=== PATIENT | male | born 1945 | race Two or more races ===

== ENCOUNTER 2025-11-03 18:12 | Inpatient (IN) | payer OTHER ==
[~2025-11-03] VITALS: Ht 165.1 cm; Wt 60.6 kg
--- NOTE | 2025-11-03 22:04 | ED.PDOC ---
History of Present Illness HPI Comments 80-year-old male who came to ER for medical clearance/altered level of consciousness. Patient coming in asking for a ride home. He does not know his address, does not even know who brought him to the hospital. He is A&O x2 at this time. Chief Complaint: Medical Clearance Time Seen by MD: 22:03 Reviewed Notes: Nurses Notes Allergies: Coded Allergies: NO KNOWN ALLERGIES (Unverified , 11/03/25) Information Source: Patient Mode of Arrival: EMS Past Medical History PAST MEDICAL HISTORY: Pt Confused Surgical History: Pt Confused Family History Family History: Pt Confused Social History Smoker: Pt Confused Alcohol: Pt Confused Drugs: Pt Confused Lives In: Pt Confused Unable to Obtain due to: Altered Mental Status Physical Exam General Appearance: No Apparent Distress, Normal HEENT: Normal ENT Inspection, Pharynx Normal, TMs Normal Neck: Full Range of Motion, Non-Tender, Normal, Normal Inspection Respiratory: Chest Non-Tender, Lungs Clear, No Accessory Muscle Use, No Respiratory Distress, Normal Breath Sounds Cardiovascular: No Edema, No JVD, No Murmur, No Gallop, Normal Peripheral Pulses, Regular Rate/Rhythm Breast Exam: Deferred Gastrointestinal: No Organomegaly, Non Tender, No Pulsatile Mass, Normal Bowel Sounds, Soft Genitalia: Deferred Pelvic: Deferred Rectal: Deferred Extremities: No calf tenderness, Normal capillary refill, Normal inspection, N ormal range of motion, Non-tender, No pedal edema Musculoskeletal : Apperance: Normal Neurologic: Alert, digitizer II-XII nml as Tested, No Motor Deficits, Normal Affect, Normal Mood, No Sensory Deficits Cerebellar Function: Normal Reflexes: Normal Skin: Dry, Normal Color, Warm Lymphatic: No Adenopathy Was a procedure done? Was a procedure done?: No Differential Dx Considerations may include: Dementia, encephalopathy, confusion, UTI X-Ray, Labs, Meds, VS Vital Signs Date Time Temp Pulse Resp B/P (MAP) Pulse Ox O2 Delivery O2 Flow Rate FiO2 11/03/25 19:35 97.5 97 19 161/78 (105) 94 97.5 11/03/25 18:24 98.3 90 20 184/96 99 98.3 Lab Test 11/03/25 23:46 11/03/25 22:42 Range/Units Troponin I High Sensitivity 28 31 </=54 ng/L White Blood Count 9.4 4.4-10.8 10^3/uL Red Blood Count 4.05 L 4.5-5.90 10^6/uL Hemoglobin 12.9 L 13.5-17.5 g/dL Hematocrit 38.3 L 41.0-53.0 % Mean Corpuscular Volume 94.5 80.0-100.0 fL Mean Corpuscular Hemoglobin 31.9 28.0-32.0 pg Mean Corpuscular Hemoglobin Concent 33.7 32.0-36.0 g/dL Red Cell Distribution Width 14.4 H 11.8-14.3 % Platelet Count 239 140-450 10^3/uL Mean Platelet Volume 7.6 6.9-10.8 fL Neutrophils (%) (Auto) 73.0 37.0-80.0 % Lymphocytes (%) (Auto) 7.9 L 10.0-50.0 % Monocytes (%) (Auto) 18.3 H 0.0-12.0 % Eosinophils (%) (Auto) 0.6 0.0-7.0 % Basophils (%) (Auto) 0.2 0.0-2.0 % Neutrophils # (Auto) 6.9 1.6-8.6 10 ^3/uL Lymphocytes # (Auto) 0.7 0.4-5.4 10 ^3/uL Monocytes # (Auto) 1.7 H 0-1.3 10 ^3/uL Eosinophils # (Auto) 0.1 0-0.8 10 ^3/uL Basophils # (Auto) 0 0-0.2 10 ^3/uL Nucleated Red Blood Cells 0.0 % Prothrombin Time 10.0 9.3-11.8 sec Prothrombin Time INR 0.94 0.9-1.15 Activated Partial Thromboplast Time 28.8 24.5-34.5 SEC Sodium Level 141 136-145 mmol/L Potassium Level 3.8 3.5-5.1 mmol/L Chloride Level 109 H 98-107 mmol/L Carbon Dioxide Level 20 20-31 mmol/L Anion Gap 12 5-15 Blood Urea Nitrogen 39 H 9-23 mg/dL Creatinine 2.85 H 0.700-1.30 mg/dL Glomerular Filtration Rate Calc 22 >90 mL/min BUN/Creatinine Ratio 13.7 10.0-20.0 Serum Glucose 99 74-106 mg/dL Lactic Acid Level 0.8 0.4-2.0 mmol/L Calcium Level 9.1 8.7-10.4 mg/dL Magnesium Level 2.2 1.6-2.6 mg/dL Total Bilirubin 0.5 0.2-1.0 mg/dL Aspartate Amino Transferase (AST) 15 13-40 U/L Alanine Aminotransferase (ALT) < 9 7-40 U/L Alkaline Phosphatase 94 46-116 U/L Total Protein 7.4 5.7-8.2 g/dL Albumin 4.5 3.2-4.8 g/dL Plasma/Serum Blood Alcohol < 3.0 <10 mg/dL Time of 1ST Reevaluation: 21:58 Reevaluation 1ST: Unchanged Patient Education/Counseling: Diagnosis, Treatment Family Education/Counseling: No Family Present SEPSIS Sepsis Screen Date sepsis recognized/suspect: Nov 03, 2025 Time Sepsis recognized/suspect: 1803 Recent Procedure: No On Antibiotic Therapy: No Respiratory Rate >20: No Heart Rate >90: Yes Temp<36 C (96.8 F) or >38.3 C: No SBP <90 or MAP <65 mmHG: No New Acute Mental Status Change: No Is the patient on CPAP, BIPAP,: No Physician Orders * High Density Talc Coater Operator Consult (11/03/25 ) Urinalysis (11/03/25 21:57) Chest Portable (11/03/25 21:57) Head Without Contrast (11/03/25 21:57) Drug Screen (11/03/25 21:57) Account Services Representative (11/03/25 21:57) Blood Culture (11/03/25 21:57) Electrocardigram (11/03/25 21:57) Vital Signs Date Time Temp Pulse Resp B/P (MAP) Pulse Ox O2 Delivery O2 Flow Rate FiO2 11/03/25 19:35 97.5 97 19 161/78 (105) 94 97.5 11/03/25 18:24 98.3 90 20 184/96 99 98.3 Laboratory Tests Test 11/03/25 22:42 Lactic Acid Level 0.8 mmol/L (0.4-2.0) White Blood Count 9.4 10^3/uL (4.4-10.8) Departure 1 Departure Time of Disposition: 00:30 Impression: Primary Impression: Metabolic encephalopathy Additional Impressions: Acute renal injury Dehydration Disposition: 09 ADMITTED INPATIENT Admit to: Med Surg Condition: Guarded Discharged With: Self Comments 80-year-old male with altered mental status and confusion. Patient is alert to self only. His lab results show acute renal injury with BUN creatinine high at 39 and 2.85. Patient was given IV fluids and antibiotics. Patient will need to be admitted for supportive care and for the workup. Critical Care Note Critical Care Time?: Yes (35 min-critical care time only) Critical care comment: Total critical care time: Approximately 36 minutes Due to a high probability of clinically significant, life threatening deterioration, the patient required my highest level of preparedness to intervene emergently and I personally spent this critical care time directly and personally managing the patient. This critical care time included obtaining a history; examining the patient; pulse oximetry; ordering and review of studies; arranging urgent treatment with development of a management plan; evaluation of patient's response to treatment; frequent reassessment; and, discussions with other providers. This critical care time was performed to assess and manage the high probability of imminent, life-threatening deterioration that could result in multi-organ failure. It was exclusive of separately billable procedures and treating other patients. Stability Stability form required: No Heart Score Heart Score: Heart Score Response (Comments) Value History Moderate Suspicious 1 EKG Repolarization Disturb 1 Age >65 2 Risk Factors 1 or 2 risk factors 1 Troponin Normal limit 0 Total 5 I personally scribed for GEORGIE KAY MD ([email or web address]) on 11/03/25 at 22:04. Electronically submitted by Bolivar Ya ([email or web address]). GEORGIE KAY MD Nov 03, 2025 22:04
[2025-11-03 23:06] LABS: Hematocrit 38.3 % (41.0-53.0); Hemoglobin 12.9 g/dL (13.5-17.5); Mean Corpuscular Hemoglobin 31.9 pg (28.0-32.0); Mean Corpuscular Volume 94.5 fL (80.0-100.0); Nucleated Red Blood Cells % 0.0 %
[2025-11-03 23:22] LABS: INR 0.94 (0.9-1.15); Partial Thromboplastin Time 28.8 SEC (24.5-34.5); Prothrombin Time 10.0 sec (9.3-11.8)
[2025-11-03 23:23] LABS: Albumin 4.5 g/dL (3.2-4.8); Alkaline Phosphatase 94 U/L (46-116); Anion Gap 12 (5-15); BUN/Creatinine Ratio 13.7 (10.0-20.0); Bilirubin, Total 0.5 mg/dL (0.2-1.0); Calcium 9.1 mg/dL (8.7-10.4); Carbon Dioxide 20 mmol/L (20-31); Glucose 99 mg/dL (74-106); Magnesium 2.2 mg/dL (1.6-2.6); Potassium 3.8 mmol/L (3.5-5.1); Sodium 141 mmol/L (136-145); Total Protein 7.4 g/dL (5.7-8.2)
[2025-11-03 23:24] LABS: Alanine Aminotransferase < 9 U/L (7-40); Blood Urea Nitrogen 39 mg/dL (9-23); Chloride 109 mmol/L (98-107)
--- NOTE | 2025-11-03 23:30 | DVH ---
EXAM: CT HEAD WITHOUT CONTRAST INDICATION: ALOC TECHNIQUE: CT of the head without intravenous contrast. Radiation Dose : 1. Head: CT Dose: CTDI volume is 53.99 mGy. Dose-length product is 971.8 mGy*cm The dose indicators for CT are the volume Computed Tomography (CT) Dose Index (CTDIvol) and the Dose Length Product (DLP), and are measured in units of mGy and mGy-cm, respectively. These indicators are not patient dose, but values generated from the CT scanner acquisition factors. The report includes radiation exposure data for exposures received during this examination. COMPARISON: None FINDINGS: Evaluation is degraded by motion artifact. No acute territorial infarct, intracranial hemorrhage, or mass effect. There are global involutional changes with compensatory prominence of the ventricles and sulci. Patchy periventricular and subcortical white matter hypoattenuation is nonspecific but may be related to small vessel ischemic disease. Chronic deep cerebral lacunar infarcts. Bilateral lens implants. The paranasal sinuses and mastoid air cells are clear. The osseous structures are unremarkable. IMPRESSION: 1. No acute territorial infarct, intracranial hemorrhage, or mass effect. 2. Age-related involutional changes. Chronic ischemic changes as detailed. 3. If clinical symptoms persist, MRI may be beneficial in further evaluation. Radiation optimization: All CT scans at this facility use at least one of these dose optimization techniques: automated exposure control mA and/or kV adjustment per patient size (includes targeted exams where dose is matched to clinical indication) or iterative reconstruction.
--- NOTE | 2025-11-04 00:48 | DVH ---
INDICATION: SOB TECHNIQUE: Frontal view of the chest. COMPARISON: None FINDINGS/IMPRESSION: The lungs are clear. The cardiomediastinal silhouette is unremarkable. No pleural effusion or pneumothorax. No acute osseous abnormality.
[2025-11-04] MEDS: SODIUM CHLORIDE 0.9% 1,000 ML IVB ONE (02:02)
--- NOTE | 2025-11-04 04:19 | PRN ---
Misceleneous Note Note Note Patient seen and evaluated ER bed 3. Patient is alert and oriented x3. States he lives in [facility], denies being homeless. refused to provide address, family contacts. Requesting he wants to rest. ER orders pending at this time. district claims manager instructed to contact CPN hospitalist once al orders completed. MEMO DUTTA NP Nov 04, 2025 04:19
[2025-11-04] MEDS ORDERED: DOCUSATE SOD 100 MG CAP PO PRN (05:15)
[2025-11-04] MEDS ORDERED: MORPHINE SULFATE INJ 2 MG/ml SYRG IV PRN (05:15)
[2025-11-04] MEDS ORDERED: ONDANSETRON HCL 4 MG/2 ML VIAL IV PRN (05:15)
[2025-11-04] MEDS ORDERED: NITROGLYCERIN 0.4 MG SL TAB SL PRN (05:15)
[2025-11-04] MEDS ORDERED: ACETAMINOPHEN 325 MG TAB PO PRN (05:15)
[2025-11-04] MEDS: SOD CHL 0.45% 1,000 ML IV SCH (05:40)
--- NOTE | 2025-11-04 05:45 | DVHHP2 ---
MEMO DUTTA LEGAL COUNSEL 11/04/25 0545: History of Present Illness Reason for Visit: confusion History of Present Illness 80-year-old male with past medical history of CKD 4, CVA, cardiac dysrhythmia, presents to the hospital confused. Patient went into the hospital requesting a ride home. However when he was asked where he lives he could not remember his address. During my evaluation the patient stated he would went into the emergency department for having difficulty urinating. Patient is alert to self and place. States he lives in [place], however is unable to provide a direct address. Denies being homeless. During the emergency department evaluation Na 141, K3.8, BUN 39, creatinine 2.85, GFR 22, mg 2.2 LA 0.8, troponin-. W9.4, H&H 12.9/30.3, PLT 239. CT of the head had no acute findings. CXR no acute cardiopulmonary disease. At this time the patient is admitted for further evaluation and treatment. 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: CVA Renal/: Chronic renal insuff Smoke: No ALCOHOL: none Drugs: None Lives: Homeless Review of Systems Constitutional: No: Fever, Chills, Sweats, Weakness, Malaise, Other Eyes: No: Pain, Vision change, Conjunctivae inflammation, Eyelid inflammation, Other, Redness ENT: No: Ear pain, Ear discharge, Nose pain, Nose discharge, Nose congestion, Mouth pain, Mouth swelling, Throat pain, Throat swelling, Other Respiratory: No: Cough, Dry, Shortness of breath, SOB with excertion, Wheezing, Hemoptysis, Pleuritic Pain, Sputum, Wheezing, Other Cardiovascular: No: Chest Pain, Palpitations, Orthopnea, Paroxysmal Noc. Dyspnea, Edema, Lt Headedness, Other Gastrointestinal: No: Nausea, Vomiting, Abdominal Pain, Diarrhea, Constipation, Melena, Hematochezia, Other Genitourinary: No Dysuria, No Frequency, No Incontinence, No Hematuria; Retention; No Other Musculoskeletal: No: other, neck pain, shoulder pain, arm pain, back pain, hand pain, leg pain, foot pain Skin: No: Rash, Lesions, Jaundice, Bruising, Other Neurological: No: Weakness, Numbness, Incoordination, Change in speech, Confusion, Seizures, Other Allergies: Coded Allergies: NO KNOWN ALLERGIES (Unverified , 11/03/25) Medications Current Medications Medications Dose Ordered Sig/Serenity Route Start Time Stop Time Status Last Admin Dose Admin Docusate Sodium 100 mg BIDPRN PRN PO 11/04/25 05:15 Acetaminophen 650 mg Q6HP PRN PO 11/04/25 05:15 Sodium Chloride 1,000 ml @ 75 mls/hr [id number] IV 11/04/25 05:15 Ondansetron HCl 4 mg Q4HP PRN IV 11/04/25 05:15 Nitroglycerin 0.4 mg Q5MINP PRN SL 11/04/25 05:15 Morphine Sulfate 2 mg Q30M PRN IV 11/04/25 05:15 Exam Vital Signs Vital Signs Date Time Temp Pulse Resp B/P (MAP) Pulse Ox O2 Delivery O2 Flow Rate FiO2 11/04/25 04:59 89 22 138/71 (93) 11/03/25 19:35 97.5 94 97.5 General Appearance: Alert, No acute distress, Other (Poor hygiene, malodorous, unkempt, malnourished) HEENT: Atraumatic, EOMI Respiratory: Clear to auscultation, Normal air movement Cardiovascular: Regular rate, Normal S1, Normal S2 Abdominal: Normal bowel sounds, Soft, No tenderness Extremities: No clubbing, No edema Skin: No rashes Neuro: Normal speech, Strength at 5/5 X4 ext Psych/Mental Status: Other (Agitated) Labs/Xrays Labs Test 11/03/25 23:46 11/03/25 22:42 Range/Units Troponin I High Sensitivity 28 </=54 ng/L White Blood Count 9.4 4.4-10.8 10^3/uL Red Blood Count 4.05 L 4.5-5.90 10^6/uL Hemoglobin 12.9 L 13.5-17.5 g/dL Hematocrit 38.3 L 41.0-53.0 % Mean Corpuscular Volume 94.5 80.0-100.0 fL Mean Corpuscular Hemoglobin 31.9 28.0-32.0 pg Mean Corpuscular Hemoglobin Concent 33.7 32.0-36.0 g/dL Red Cell Distribution Width 14.4 H 11.8-14.3 % Platelet Count 239 140-450 10^3/uL Mean Platelet Volume 7.6 6.9-10.8 fL Neutrophils (%) (Auto) 73.0 37.0-80.0 % Lymphocytes (%) (Auto) 7.9 L 10.0-50.0 % Monocytes (%) (Auto) 18.3 H 0.0-12.0 % Eosinophils (%) (Auto) 0.6 0.0-7.0 % Basophils (%) (Auto) 0.2 0.0-2.0 % Neutrophils # (Auto) 6.9 1.6-8.6 10 ^3/uL Lymphocytes # (Auto) 0.7 0.4-5.4 10 ^3/uL Monocytes # (Auto) 1.7 H 0-1.3 10 ^3/uL Eosinophils # (Auto) 0.1 0-0.8 10 ^3/uL Basophils # (Auto) 0 0-0.2 10 ^3/uL Nucleated Red Blood Cells 0.0 % Prothrombin Time 10.0 9.3-11.8 sec Prothrombin Time INR 0.94 0.9-1.15 Activated Partial Thromboplast Time 28.8 24.5-34.5 SEC Sodium Level 141 136-145 mmol/L Potassium Level 3.8 3.5-5.1 mmol/L Chloride Level 109 H 98-107 mmol/L Carbon Dioxide Level 20 20-31 mmol/L Anion Gap 12 5-15 Blood Urea Nitrogen 39 H 9-23 mg/dL Creatinine 2.85 H 0.700-1.30 mg/dL Glomerular Filtration Rate Calc 22 >90 mL/min BUN/Creatinine Ratio 13.7 10.0-20.0 Serum Glucose 99 74-106 mg/dL Lactic Acid Level 0.8 0.4-2.0 mmol/L Calcium Level 9.1 8.7-10.4 mg/dL Magnesium Level 2.2 1.6-2.6 mg/dL Total Bilirubin 0.5 0.2-1.0 mg/dL Aspartate Amino Transferase (AST) 15 13-40 U/L Alanine Aminotransferase (ALT) < 9 7-40 U/L Alkaline Phosphatase 94 46-116 U/L Total Protein 7.4 5.7-8.2 g/dL Albumin 4.5 3.2-4.8 g/dL Plasma/Serum Blood Alcohol < 3.0 <10 mg/dL SEPSIS Sepsis Screen Date sepsis recognized/suspect: Nov 04, 2025 Time Sepsis recognized/suspect: 522 Recent Procedure: No On Antibiotic Therapy: No Respiratory Rate >20: No Heart Rate >90: No Temp<36 C (96.8 F) or >38.3 C: No SBP <90 or MAP <65 mmHG: No New Acute Mental Status Change: No Is the patient on CPAP, BIPAP,: No Physician Orders Urinalysis (11/03/25 21:57) Chest Portable (11/03/25 21:57) Head Without Contrast (11/03/25 21:57) Drug Screen (11/03/25 21:57) Director Perioperative (11/03/25 21:57) Blood Culture (11/03/25 21:57) Electrocardigram (11/03/25 21:57) * Building Contractor Consult (11/04/25 ) Admit (11/04/25 05:15) Code Status (11/04/25 05:15) Vital Signs .PER UNIT PROTOCOL (11/04/25 05:15) Review Orders With Adm. (11/04/25 05:15) Encourage Activity As Tolerate (11/04/25 05:15) Consistent Carb(Ccho)Diabetes (11/04/25 Breakfast) Oxygen By Face Mask (11/04/25 05:15) Docusate Sodium Capsule (Colace Capsule) (11/04/25 05:15) Acetaminophen Tablet (Tylenol Tablet) (11/04/25 05:15) Notify Md Of Changes From Base (11/04/25 05:15) Advance Directive (11/04/25 05:15) Basic Metabolic Panel (11/05/25 05:00) Basic Metabolic Panel (11/06/25 05:00) Basic Metabolic Panel (11/07/25 05:00) Basic Metabolic Panel (11/08/25 05:00) Basic Metabolic Panel (11/09/25 05:00) Complete Blood Count (11/05/25 05:00) Complete Blood Count (11/06/25 05:00) Complete Blood Count (11/07/25 05:00) Complete Blood Count (11/08/25 05:00) Complete Blood Count (11/09/25 05:00) Sod Chl 0.45% (Sodium Chloride 0.45% Via (11/04/25 05:15) Patient Condition (11/04/25 05:15) Allergies (11/04/25 05:15) Ondansetron Hcl (Zofran) (11/04/25 05:15) Sequential Compression Device (11/04/25 ) Nitroglycerin Sublingual (Ntrostat Subli (11/04/25 05:15) Morphine Sulfate Injection (11/04/25 05:15) Stat Ekg For Chest Pain (11/04/25 05:15) Notify Md Of Changes From Base (11/04/25 05:15) Store Sales Manager For 24 Hours (11/04/25 05:15) Emergency Dysrhythmia Protocol (11/04/25 05:15) Rhythm Strips Once Every Shift (11/04/25 05:15) Oxygen By Nasal Cannula (11/04/25 05:15) Pt Request For Service (11/04/25 05:15) *[facility] (11/04/25 05:15) Kidney (11/04/25 05:15) Insert Givens Catheter QSHIFT (11/04/25 05:22) Insert/Manage Urinary Catheter QSHIFT (11/04/25 05:22) Vitamin B12 (11/04/25 05:24) Ammonia (11/04/25 05:24) Thyroid Stimulating Hormone (11/04/25 05:24) Vital Signs Date Time Temp Pulse Resp B/P (MAP) Pulse Ox O2 Delivery O2 Flow Rate FiO2 11/04/25 04:59 89 22 138/71 (93) Laboratory Tests Test 11/03/25 22:42 Lactic Acid Level 0.8 mmol/L (0.4-2.0) White Blood Count 9.4 10^3/uL (4.4-10.8) Medications Medications Dose Ordered Sig/Serenity Route Start Time Stop Time Status Last Admin Dose Admin Ceftriaxone Sodium 50 ml @ 100 mls/hr ONCE ONCE IV 11/04/25 00:45 11/04/25 01:14 DC 11/04/25 02:03 100 MLS/HR Sodium Chloride 1,000 ml @ 1,000 mls/hr Q1H ONCE IVB 11/03/25 22:00 11/03/25 22:59 DC 11/04/25 02:02 1,000 MLS/HR Assessment/Plan Assessment/Plan Acute confusion versus underlying dementia Acute kidney injury on chronic kidney disease Homelessness? Plan Admit medical Nephrology consult. Monitor BMP. Trend. BUN/creatinine. Renal US. Psych evaluation MRI brain. Check B12, TSH, ammonia level. UA, UDS, blood cultures, pending. Social service consult Physical therapy evaluation DVT PPX Heparin SQ Plan discussed with: Patient My Orders Orders - MEMO DUTTA NP Procedure Category Date Status Time * Building Contractor CONS 11/04/25 Transmitted Consult Admit ADMIT 11/04/25 Transmitted 05:15 Code Status CODE 11/04/25 Transmitted 05:15 Vital Signs [facility] 11/04/25 In Process 05:15 Review Orders With [facility] 11/04/25 In Process Adm. 05:15 Encourage Activity As ANDRES 11/04/25 In Process Tolerate 05:15 Consistent DIET 11/04/25 Transmitted Carb(Ccho)Diabetes Breakfast Oxygen By Face Mask RT 11/04/25 Transmitted 05:15 Docusate Sodium PHA 11/04/25 In Process Capsule (Colace 05:15 Acetaminophen Tablet PHA 11/04/25 In Process (Tylenol Tablet) 05:15 Notify Of Changes [facility] 11/04/25 In Process From Base 05:15 Advance Directive [facility] 11/04/25 In Process 05:15 Basic Metabolic Panel LAB 11/05/25 Verified 05:00 Basic Metabolic Panel LAB 11/06/25 Verified 05:00 Basic Metabolic Panel LAB 11/07/25 Verified 05:00 Basic Metabolic Panel LAB 11/08/25 Verified 05:00 Basic Metabolic Panel LAB 11/09/25 Verified 05:00 Complete Blood Count LAB 11/05/25 Verified 05:00 Complete Blood Count LAB 11/06/25 Verified 05:00 Complete Blood Count LAB 11/07/25 Verified 05:00 Complete Blood Count LAB 11/08/25 Verified 05:00 Complete Blood Count LAB 11/09/25 Verified 05:00 Sod Chl 0.45% (Sodium PHA 11/04/25 In Process Chloride 0.45% Via 05:15 Patient Condition ORDERS 11/04/25 Transmitted 05:15 Allergies [facility] 11/04/25 In Process 05:15 Ondansetron Hcl PHA 11/04/25 In Process (Zofran) 05:15 Sequential ANDRES 11/04/25 In Process Compression Device Nitroglycerin [facility] 11/04/25 In Process Sublingual (Ntrostat 05:15 Morphine Sulfate PHA 11/04/25 In Process Injection 05:15 Stat Ekg For Chest [facility]RES 11/04/25 In Process Pain 05:15 Notify Md Of Changes ANDRES 11/04/25 In Process From Base 05:15 Store Sales Manager For [facility] 11/04/25 In Process 24 Hours 05:15 Emergency Dysrhythmia [facility] 11/04/25 In Process Protocol 05:15 Rhythm Strips Once ANDRES 11/04/25 In Process Every Shift 05:15 Oxygen By Nasal RT 11/04/25 Transmitted Cannula 05:15 Pt Request For Service PT 11/04/25 Logged 05:15 *[facility] CONS 11/04/25 Transmitted -[place] 05:15 Kidney US 11/04/25 Logged 05:15 Insert Givens Catheter [facility]RES 11/04/25 In Process 05:22 Insert/Manage Urinary ANDRES 11/04/25 In Process Catheter 05:22 Vitamin B12 LAB 11/04/25 Logged 05:24 Ammonia LAB 11/04/25 Logged 05:24 Thyroid Stimulating LAB 11/04/25 Logged Hormone 05:24 Date of Service: Nov 04, 2025 Billing Provider: RONEY HUERTAS MD Common Visit Codes: NOT BILLABLE RONEY HUERTAS MD 11/04/25 1821: Review of Systems Allergies: Coded Allergies: NO KNOWN ALLERGIES (Unverified , 11/03/25) Additional Comments Additional Comments Additional Comments Patient's chart is reviewed and discussed with the nurse practitioner. Patient is seen and evaluated admitted by LEGAL COUNSEL mineral surveyor. I agree with his evaluation, documentation, assessment and care plan as outlined. Patient personally seen and evaluated by me in the ER this afternoon and discussed with the nurse regarding care plan at bedside. MEMO DUTTA NP Nov 04, 2025 05:45 RONEY HUERTAS MD Nov 04, 2025 18:21
[2025-11-04 06:56] LABS: Urine Protein, UAD 2+ (Negative)
[2025-11-04 07:06] LABS: Amphetamine Screen, Urine Neg (NEGATIVE); Barbiturate Scree,Urine Neg (NEGATIVE); Benzodiazephine Screen, Urine Neg (NEGATIVE); Opiate Scree,Urine Neg (NEGATIVE); Phencyclidine Screen, Urine Neg (NEGATIVE)
[2025-11-04 07:07] LABS: Cannabinoid Screen, Urine Neg (NEGATIVE); Cocaine Screen, Urine Neg (NEGATIVE)
[2025-11-04 07:55] VITALS: PULSE 86; RESP 20; O2SAT 94
--- NOTE | 2025-11-04 09:06 | DVH ---
INDICATION: RACHEL ON CKD TECHNIQUE: Multiple real-time sonographic images of the kidneys and bladder were obtained. COMPARISON: None FINDINGS: RIGHT kidney measures 10.2 cm in length. Nonobstructing stone in the right midpole measures 2.6 cm. No hydronephrosis. LEFT kidney measures 9.0 cm in length. No hydronephrosis. Givens catheter within collapsed urinary bladder. IMPRESSION: No hydronephrosis.Nonobstructing right renal stone.
[2025-11-04] MEDS: HEPARIN SODIUM (PORCINE) 5000 UNITS/ML 1ML VIAL SC SCH (11:20)
--- NOTE | 2025-11-04 11:22 | DVHINCON2 ---
Date of service: Nov 04, 2025 Referring Physician Vamsi Doyle, nurse practitioner Reason for Consultation Acute kidney injury History of Present Illness Patient is a 80-year-old male with past medical history of hypertension, CVA, AFib and Chronic Kidney Disease stage 4 who is admitted for altered level of consciousness and confusion. On admission patient found to have elevated BUN creatinine nephrology is consulted for acute kidney injury Past Medical History Hypertension, CVA, Chronic Kidney Disease, AFib Past Surgical History Unknown Allergies: Coded Allergies: NO KNOWN ALLERGIES (Unverified , 11/03/25) Current Medications Current Medications Medications (Trade) Dose Ordered Sig/Serenity Route PRN Reason Start Time Stop Time Status Last Admin Docusate Sodium (Colace Capsule) 100 mg BIDPRN PRN PO FOR CONSTIPATION 11/04/25 05:15 Acetaminophen (Tylenol Tablet) 650 mg Q6HP PRN PO PAIN SCALE 1-3 OR TEMP>100.4 11/04/25 05:15 Sodium Chloride 1,000 ml @ 75 mls/hr [id number] IV 11/04/25 05:15 11/04/25 05:40 Ondansetron HCl (Zofran) 4 mg Q4HP PRN IV NAUSEA / VOMITING 11/04/25 05:15 Nitroglycerin (Ntrostat Sublingual) 0.4 mg Q5MINP PRN SL FOR CHEST PAIN 11/04/25 05:15 Morphine Sulfate 2 mg Q30M PRN IV FOR CHEST PAIN 11/04/25 05:15 Heparin Sodium (Porcine) 5,000 units Q12HR SC 11/04/25 10:00 Review of Systems Can not be obtained due to altered level of consciousness H&P Exam Vital Signs/I&O Vital Sign Date Time Temp Pulse Resp B/P (MAP) Pulse Ox O2 Delivery O2 Flow Rate FiO2 11/04/25 13:00 118 11/04/25 11:15 98.5 14 110/73 (85) 99 98.5 11/04/25 07:55 Room Air* 0 21 Intake and Output 11/03/25 11/04/25 19:00 07:00 Intake Total 1125 ml Balance 1125 ml Intake IV Total 1125 ml Physical Exam Patient lying comfortably in bed Lungs clear to auscultation bilaterally Cardiac exam regular rate and rhythm GI soft nontender was normal Extremities no clubbing cyanosis or edema Neuro patient is arousable Labs/Diagnostic Data Labs/Diagnostic Data Laboratory Tests Test 11/04/25 12:57 11/04/25 05:48 11/03/25 23:46 11/03/25 22:42 Range/Units Phosphorus Level 4.1 2.4-5.1 mg/dL Ammonia 17 11-32 umol/L Thyroid Stimulating Hormone (TSH) 1.09 0.55-4.78 uIU/mL Troponin I High Sensitivity 28 31 </=54 ng/L White Blood Count 9.4 4.4-10.8 10^3/uL Red Blood Count 4.05 L 4.5-5.90 10^6/uL Hemoglobin 12.9 L 13.5-17.5 g/dL Hematocrit 38.3 L 41.0-53.0 % Mean Corpuscular Volume 94.5 80.0-100.0 fL Mean Corpuscular Hemoglobin 31.9 28.0-32.0 pg Mean Corpuscular Hemoglobin Concent 33.7 32.0-36.0 g/dL Red Cell Distribution Width 14.4 H 11.8-14.3 % Platelet Count 239 140-450 10^3/uL Mean Platelet Volume 7.6 6.9-10.8 fL Neutrophils (%) (Auto) 73.0 37.0-80.0 % Lymphocytes (%) (Auto) 7.9 L 10.0-50.0 % Monocytes (%) (Auto) 18.3 H 0.0-12.0 % Eosinophils (%) (Auto) 0.6 0.0-7.0 % Basophils (%) (Auto) 0.2 0.0-2.0 % Neutrophils # (Auto) 6.9 1.6-8.6 10 ^3/uL Lymphocytes # (Auto) 0.7 0.4-5.4 10 ^3/uL Monocytes # (Auto) 1.7 H 0-1.3 10 ^3/uL Eosinophils # (Auto) 0.1 0-0.8 10 ^3/uL Basophils # (Auto) 0 0-0.2 10 ^3/uL Nucleated Red Blood Cells 0.0 % Prothrombin Time 10.0 9.3-11.8 sec Prothrombin Time INR 0.94 0.9-1.15 Activated Partial Thromboplast Time 28.8 24.5-34.5 SEC Sodium Level 141 136-145 mmol/L Potassium Level 3.8 3.5-5.1 mmol/L Chloride Level 109 H 98-107 mmol/L Carbon Dioxide Level 20 20-31 mmol/L Anion Gap 12 5-15 Blood Urea Nitrogen 39 H 9-23 mg/dL Creatinine 2.85 H 0.700-1.30 mg/dL Glomerular Filtration Rate Calc 22 >90 mL/min BUN/Creatinine Ratio 13.7 10.0-20.0 Serum Glucose 99 74-106 mg/dL Lactic Acid Level 0.8 0.4-2.0 mmol/L Calcium Level 9.1 8.7-10.4 mg/dL Magnesium Level 2.2 1.6-2.6 mg/dL Total Bilirubin 0.5 0.2-1.0 mg/dL Aspartate Amino Transferase (AST) 15 13-40 U/L Alanine Aminotransferase (ALT) < 9 7-40 U/L Alkaline Phosphatase 94 46-116 U/L Total Protein 7.4 5.7-8.2 g/dL Albumin 4.5 3.2-4.8 g/dL Plasma/Serum Blood Alcohol < 3.0 <10 mg/dL Test 11/03/25 22:00 Range/Units Urine Color Light-yellow Yellow Urine Clarity Clear Clear Urine pH 5.5 5.0-9.0 Urine Specific [place] 1.013 1.001-1.035 Urine Protein 2+ H Negative Urine Ketones Negative Negative Urine Blood Trace H Negative /uL Urine Nitrite Negative Negative Urine Bilirubin Negative Negative Urine Urobilinogen Normal Negative mg/dL Urine Leukocyte Esterase Negative Negative /uL Urine RBC <1 0 - 3 /hpf Urine Microscopic WBC < 1 0-3 /HPF Urine Squamous Epithelial Cells Few <5 /hpf Urine Bacteria None seen None Seen /hpf Urine Glucose Normal Normal mg/dL Urine Opiates Screen Neg NEGATIVE Urine Fentanyl Screen Neg NEGATIVE Urine Barbiturates Screen Neg NEGATIVE Urine Phencyclidine Screen Neg NEGATIVE Urine Amphetamines Screen Neg NEGATIVE Urine Benzodiazepines Screen Neg NEGATIVE Urine Cocaine Screen Neg NEGATIVE Urine Cannabinoids Screen Neg NEGATIVE Assessment Acute kidney injury superimposed Chronic Kidney Disease secondary hemodynamic mediated CVA Encephalopathy Hypertension Atrial fibrillation Anemia of chronic kidney disease Nephrolithiasis Recommendations Closely monitor fluid and electrolytes Avoid nephrotoxic medications Strict I&Os Blood pressure control Check urine electrolytes and protein excretion Kidney ultrasound reported 2.6 cm nonobstructing right kidney stone Neurology consult Urology consult We will continue to follow Patient seen and examined by myself. I discussed my plan of care with the primary nurse at the bedside I would like to thank Vamsi for the consult, will follow up Plan discussed with: Other (nurse) JODEE CLEMENS MD Nov 04, 2025 11:22
[2025-11-04 20:00] VITALS: PULSE 86; RESP 20; O2SAT 94
[2025-11-04 21:00] VITALS: BP 143/64; PULSE 62; RESP 18; TEMP 99.3; O2SAT 94
[2025-11-05] VITALS (7 sets, daily range): BP systolic 122–161; BP diastolic 64–78; PULSE 62–94; RESP 16–18; TEMP 98.1–99.5; O2SAT 94–95
[2025-11-05 06:46] LABS: Hematocrit 32.5 % (41.0-53.0); Hemoglobin 11.1 g/dL (13.5-17.5); Mean Corpuscular Hemoglobin 32.0 pg (28.0-32.0); Mean Corpuscular Volume 93.5 fL (80.0-100.0)
[2025-11-05 07:07] LABS: Sodium 142 mmol/L (136-145)
[2025-11-05 07:08] LABS: Anion Gap 11 (5-15); Carbon Dioxide 23 mmol/L (20-31)
[2025-11-05 07:13] LABS: BUN/Creatinine Ratio 13.1 (10.0-20.0)
[2025-11-05 07:17] LABS: Chloride 108 mmol/L (98-107); Potassium 3.3 mmol/L (3.5-5.1)
[2025-11-05 07:45] LABS: Blood Urea Nitrogen 38 mg/dL (9-23); Calcium 8.5 mg/dL (8.7-10.4)
[2025-11-05 07:47] LABS: Glucose 47 mg/dL (74-106)
[2025-11-05 08:09] LABS: Total Cells Counted 100.0 (100)
--- NOTE | 2025-11-05 10:17 | DVHPN2 ---
Progress Note Date Seen: Nov 05, 2025 Medical Necessity Reason Pt with a Central, PICC or Fol: Yes The following are medically ne: Givens Catheter Subjective Changes from previous H/P or p: No Changes Review of Systems: Deferred Objective vital signs Vital Sign Date Time Temp Pulse Resp B/P (MAP) Pulse Ox O2 Delivery O2 Flow Rate FiO2 11/05/25 08:37 98.1 86 18 147/78 (101) 95 98.1 11/05/25 08:10 Room Air* 0 21 Total Intake and Output 11/04/25 11/04/25 11/05/25 15:00 23:00 07:00 Intake Total 100 ml Balance 100 ml medications Current Medications Medications Dose Ordered Sig/Serenity Route Start Time Stop Time Status Last Admin Dose Admin Docusate Sodium 100 mg BIDPRN PRN PO 11/04/25 05:15 Acetaminophen 650 mg Q6HP PRN PO 11/04/25 05:15 Sodium Chloride 1,000 ml @ 75 mls/hr [id number] IV 11/04/25 05:15 11/05/25 09:51 75 MLS/HR Ondansetron HCl 4 mg Q4HP PRN IV 11/04/25 05:15 Nitroglycerin 0.4 mg Q5MINP PRN SL 11/04/25 05:15 Morphine Sulfate 2 mg Q30M PRN IV 11/04/25 05:15 Heparin Sodium (Porcine) 5,000 units Q12HR SC 11/04/25 10:00 Quetiapine Fumarate 25 mg HS PO 11/04/25 22:00 11/04/25 22:51 25 MG Examination: GENERAL:Normal, CVS:Abnormal, ABDOMEN:Normal laboratory and microbiology Laboratory Tests 11/05/25 05:11 Test 11/05/25 05:11 Range/Units Serum Glucose 47 *L 74-106 mg/dL Microbiology Date/Time Source Procedure Growth Status 11/03/25 22:50 Blood Blood Culture - Preliminary NO GROWTH AFTER 24 HOURS OF INCUBATION. Resulted Problem List/Assessment/Plan Problem List/Assessment/Plan Acute kidney injury superimposed Chronic Kidney Disease secondary hemodynamic mediated CVA Encephalopathy Hypertension Atrial fibrillation Anemia of chronic kidney disease Nephrolithiasis Closely monitor fluid and electrolytes Avoid nephrotoxic medications Strict I&Os Blood pressure control Kidney ultrasound reported 2.6 cm nonobstructing right kidney stone Neurology consult Urology consult Plan discussed with: Patient TEGAN BARRETO MD Nov 05, 2025 10:17
[2025-11-05] MEDS ORDERED: HEPARIN SODIUM (PORCINE) 5000 UNITS/ML 1ML VIAL ONE (10:34)
[2025-11-05 12:05] LABS: Free T4 (Free Thyroxine) 0.98 ng/dL (0.89-1.76)
--- NOTE | 2025-11-05 15:27 | DVHPN2 ---
Progress Note - Dictate Date Seen: Nov 05, 2025 Medical Necessity Reason Pt with a Central, PICC or Fol: Yes The following are medically ne: Givens Catheter Subjective Patient is still remains confused. Wondering in the room. Unable to locate next of kin. Discussed with the choice on-call cyanide case hardener apparently patient was at [facility] a month ago and has a diagnosis of dementia and alcohol use disorder. Apparently was also homeless. vital signs Vital Sign Date Time Temp Pulse Resp B/P (MAP) Pulse Ox O2 Delivery O2 Flow Rate FiO2 11/05/25 13:00 98.7 77 16 161/73 (102) 95 98.7 11/05/25 08:10 Room Air* 0 21 Total Intake and Output 11/04/25 11/04/25 11/05/25 15:00 23:00 07:00 Intake Total 100 ml Balance 100 ml medications Current Medications Medications Dose Ordered Sig/Serenity Route Start Time Stop Time Status Last Admin Dose Admin Docusate Sodium 100 mg BIDPRN PRN PO 11/04/25 05:15 Acetaminophen 650 mg Q6HP PRN PO 11/04/25 05:15 Ondansetron HCl 4 mg Q4HP PRN IV 11/04/25 05:15 Nitroglycerin 0.4 mg Q5MINP PRN SL 11/04/25 05:15 Morphine Sulfate 2 mg Q30M PRN IV 11/04/25 05:15 Heparin Sodium (Porcine) 5,000 units Q12HR SC 11/04/25 10:00 Quetiapine Fumarate 25 mg HS PO 11/04/25 22:00 11/04/25 22:51 25 MG Folic Acid 1 mg/ Magnesium Sulfate 8 meq/ Multivitamins 10 ml/Thiamine HCl 100 mg/Sodium Chloride 1,013.2 ml @ 126.247 mls/hr DAILY@1800 INJ 11/05/25 18:00 UNV Thiamine HCl 100 mg DAILY PO 11/06/25 10:00 UNV objective Sitting in the chair anxious/agitated. Wants to leave. HEENT neck supple no JVD. Heart regular rate rhythm S1-S2. Lungs fair air movement without wheezing. Abdomen soft positive bowel sounds extremities no edema. laboratory and microbiology Laboratory Tests 11/05/25 05:11 Test 11/05/25 05:11 Range/Units Serum Glucose 47 *L 74-106 mg/dL Assessment/Plan We will add banana bag and thiamine given history of alcohol use disorder. We will start him on Aricept. Continue Seroquel at night for agitation. Social Service involved to get hold of durable for of prosecuting attorney or next of kin. Meantime continue IV fluids. Follow the kidney function. Further clinical management per clinical course. Discussed with the nurse regarding care plan Problems(with codes): (1) Early onset Alzheimer's dementia (2) Metabolic encephalopathy (3) Dehydration (4) Acute renal injury Plan discussed with: Other RONYE HUERTAS MD Nov 05, 2025 15:27
[2025-11-05] MEDS: SODIUM CHLORIDE 0.9% 1,000 ML IV SCH (16:50)
[2025-11-05] MEDS: FOLIC ACID 1 MG, MAGNESIUM SULF SDV 50% 8 MEQ, MULTIPLE VITAMIN 10 ML, THIAMINE INJ 100... INJ SCH (18:24)
[2025-11-05] MEDS: DONEPEZIL HYDROCHLORIDE 5 MG TAB PO SCH (21:35)
[2025-11-06] VITALS (7 sets, daily range): BP systolic 119–154; BP diastolic 69–87; PULSE 76–89; RESP 17–18; TEMP 98.2–98.8; O2SAT 94–98
[2025-11-06 07:10] LABS: Sodium 142 mmol/L (136-145)
[2025-11-06 07:11] LABS: Anion Gap 9 (5-15); Carbon Dioxide 23 mmol/L (20-31)
[2025-11-06 07:12] LABS: Hematocrit 32.7 % (41.0-53.0); Hemoglobin 11.4 g/dL (13.5-17.5); Mean Corpuscular Hemoglobin 32.6 pg (28.0-32.0); Mean Corpuscular Volume 93.8 fL (80.0-100.0)
[2025-11-06 07:16] LABS: Calcium 8.2 mg/dL (8.7-10.4); Chloride 110 mmol/L (98-107); Potassium 3.3 mmol/L (3.5-5.1)
[2025-11-06 07:17] LABS: BUN/Creatinine Ratio 10.2 (10.0-20.0); Blood Urea Nitrogen 29 mg/dL (9-23); Glucose 67 mg/dL (74-106)
[2025-11-06 07:47] LABS: Total Cells Counted 100.0 (100)
[2025-11-06] MEDS: THIAMINE HCL 100 MG TAB PO SCH (09:44)
--- NOTE | 2025-11-06 12:27 | DVHPN2 ---
Progress Note Date Seen: Nov 06, 2025 Medical Necessity Reason Pt with a Central, PICC or Fol: Yes The following are medically ne: Givens Catheter Objective vital signs Vital Sign Date Time Temp Pulse Resp B/P (MAP) Pulse Ox O2 Delivery O2 Flow Rate FiO2 11/06/25 09:52 98.2 85 18 154/87 (109) 98 98.2 11/05/25 20:00 Room Air* 0 21 Total Intake and Output 11/05/25 11/05/25 11/06/25 15:00 23:00 07:00 Intake Total 375 ml 375 ml 1963.2 ml Balance 375 ml 375 ml 1963.2 ml medications Current Medications Medications Dose Ordered Sig/Serenity Route Start Time Stop Time Status Last Admin Dose Admin Docusate Sodium 100 mg BIDPRN PRN PO 11/04/25 05:15 Acetaminophen 650 mg Q6HP PRN PO 11/04/25 05:15 Ondansetron HCl 4 mg Q4HP PRN IV 11/04/25 05:15 Nitroglycerin 0.4 mg Q5MINP PRN SL 11/04/25 05:15 Morphine Sulfate 2 mg Q30M PRN IV 11/04/25 05:15 Heparin Sodium (Porcine) 5,000 units Q12HR SC 11/04/25 10:00 Quetiapine Fumarate 25 mg HS PO 11/04/25 22:00 11/05/25 21:35 25 MG Folic Acid 1 mg/ Magnesium Sulfate 8 meq/ Multivitamins 10 ml/Thiamine HCl 100 mg/Sodium Chloride 1,013.2 ml @ 126.247 mls/hr DAILY@1800 INJ 11/05/25 18:00 11/05/25 18:24 126.247 MLS/HR Thiamine HCl 100 mg DAILY PO 11/06/25 10:00 11/06/25 09:44 100 MG Sodium Chloride 1,000 ml @ 75 mls/hr [id number] IV 11/05/25 15:30 11/06/25 04:47 75 MLS/HR Donepezil HCl 5 mg HS PO 11/05/25 22:00 11/05/25 21:35 5 MG Examination: GENERAL:Normal, CVS:Normal laboratory and microbiology Laboratory Tests 11/06/25 06:02 Test 11/06/25 06:02 Range/Units Serum Glucose 67 L 74-106 mg/dL Microbiology Date/Time Source Procedure Growth Status 11/03/25 22:50 Blood Blood Culture - Preliminary NO GROWTH AFTER 48 HOURS OF INCUBATION. Resulted Problem List/Assessment/Plan Problem List/Assessment/Plan Acute kidney injury superimposed Chronic Kidney Disease secondary hemodynamic mediated CVA Encephalopathy Hypertension Atrial fibrillation Anemia of chronic kidney disease Nephrolithiasis stable renal function this admission although notably advanced replace potassium today c/w IVF Closely monitor fluid and electrolytes Avoid nephrotoxic medications Strict I&Os Blood pressure control Kidney ultrasound reported 2.6 cm nonobstructing right kidney stone Neurology consult Urology consult Plan discussed with: Patient TEGAN BARRETO MD Nov 06, 2025 12:27
[2025-11-06] MEDS: POTASSIUM CHL 20 Meq TABLET PO ONE (13:55)
--- NOTE | 2025-11-06 19:06 | DVHPN2 ---
Subjective Patient denies any complaints feeling much better. Changes from previous H/P or p: No Changes Eyes: No Pain, No Vision change, No Conjunctivae inflammation, No Eyelid inflammation, No Other, No Redness ENT: No Ear pain, No Ear discharge, No Nose pain, No Nose discharge, No Nose congestion, No Mouth pain, No Mouth swelling, No Throat pain, No Throat swelling, No Other Cardiovascular: No Chest Pain, No Palpitations, No Orthopnea, No Paroxysmal Noc. Dyspnea, No Edema, No Lt Headedness, No Other Respiratory: No Cough, No Dry, No Shortness of breath, No SOB with excertion, No Wheezing, No Hemoptysis, No Pleuritic Pain, No Sputum, No Other Gastrointestinal: No Nausea, No Vomiting, No Abdominal Pain, No Diarrhea, No Constipation, No Melena, No Hematochezia, No Other Genitourinary: No Dysuria, No Frequency, No Incontinence, No Hematuria; R etention; No Other Musculoskeletal: No other, No neck pain, No shoulder pain, No arm pain, No back pain, No hand pain, No leg pain, No foot pain Skin: No Rash, No Lesions, No Jaundice, No Bruising, No Other Objective Vitals Vital Signs Date Time Temp Pulse Resp B/P (MAP) Pulse Ox O2 Delivery O2 Flow Rate FiO2 11/06/25 16:26 98.4 77 18 132/77 (95) 94 98.4 11/06/25 08:00 Room Air* 0 21 Intake/Output Intake and Output 11/06/25 07:00 Intake Total 2713.2 ml Balance 2713.2 ml Intake Oral 1250 ml IV Total 1463.2 ml # Voids 2 # Bowel Movements 2 Exam HEENT pupils are reactive Neck is supple CV is S1-S2 regular rate and rhythm Respiratory diminished breath sounds bases GI positive bowel sound Extremity no edema [employer] no motor deficit Medications Current Medications Medications Dose Ordered Sig/Serenity Route Start Time Stop Time Status Last Admin Dose Admin Docusate Sodium 100 mg BIDPRN PRN PO 11/04/25 05:15 Acetaminophen 650 mg Q6HP PRN PO 11/04/25 05:15 Ondansetron HCl 4 mg Q4HP PRN IV 11/04/25 05:15 Nitroglycerin 0.4 mg Q5MINP PRN SL 11/04/25 05:15 Morphine Sulfate 2 mg Q30M PRN IV 11/04/25 05:15 Heparin Sodium (Porcine) 5,000 units Q12HR SC 11/04/25 10:00 Quetiapine Fumarate 25 mg HS PO 11/04/25 22:00 11/05/25 21:35 25 MG Thiamine HCl 100 mg DAILY PO 11/06/25 10:00 11/06/25 09:44 100 MG Sodium Chloride 1,000 ml @ 75 mls/hr [id number] IV 11/05/25 15:30 11/06/25 04:47 75 MLS/HR Donepezil HCl 5 mg HS PO 11/05/25 22:00 11/05/25 21:35 5 MG Folic Acid 1 mg DAILY PO 11/07/25 10:00 Multivitamins 1 tab DAILY PO 11/07/25 10:00 Laboratory Results Laboratory Tests 11/06/25 06:02 Chemistry Test 11/06/25 06:02 Calcium Level 8.2 mg/dL (8.7-10.4) L Urinalysis Test 11/03/25 22:00 11/04/25 11:18 Urine Color Light-yellow (Yellow) Urine Clarity Clear (Clear) Urine pH 5.5 (5.0-9.0) Urine Specific [place] 1.013 (1.001-1.035) Urine Protein 2+ (Negative) H Urine Ketones Negative (Negative) Urine Blood Trace /uL (Negative) H Urine Nitrite Negative (Negative) Urine Bilirubin Negative (Negative) Urine Urobilinogen Normal mg/dL (Negative) Urine Leukocyte Esterase Negative /uL (Negative) Urine RBC <1 /hpf (0 - 3) Urine Microscopic WBC < 1 /HPF (0-3) Urine Squamous Epithelial Cells Few /hpf (<5) Urine Bacteria None seen /hpf (None Seen) Urine Glucose Normal mg/dL (Normal) Urine Creatinine Pending Urine Protein/Creatinine Ratio Pending Urine Sodium Pending Urine Total Protein Pending Microbiology Microbiology Date/Time Source Procedure Growth Status 11/03/25 22:50 Blood Blood Culture - Preliminary NO GROWTH AFTER 48 HOURS OF INCUBATION. Resulted Assessment/Plan Assessment/Plan 80-year-old male with a known history of CKD stage 4, hypertension, AFib, history of CVA,, mood/behavior disorder presented to the hospital with altered mental status found to have 1. Acute metabolic encephalopathy with a underlying Alzheimer dementia 2. AKA with a underlying CKD stage 4 3. Alzheimer dementia 4. Behavior disorder 5. Chronic alcoholism -continue thiamine and folic acid. -resume Seroquel, PT evaluation and treatment, discharge plan Plan discussed with: Patient Problem List: (1) Metabolic encephalopathy (2) Acute renal injury (3) Early onset Alzheimer's dementia Date of Service: Nov 06, 2025 Billing Provider: CLAUDIA ODELL MD Common Visit Codes: NOT BILLABLE CLAUDIA ODELL MD Nov 06, 2025 19:06
[2025-11-07 05:00] VITALS: BP 136/73; PULSE 73; RESP 18; TEMP 98.4; O2SAT 96
[2025-11-07 05:25] LABS: Hematocrit 34.6 % (41.0-53.0); Hemoglobin 11.6 g/dL (13.5-17.5); Mean Corpuscular Hemoglobin 31.6 pg (28.0-32.0); Mean Corpuscular Volume 94.3 fL (80.0-100.0); Nucleated Red Blood Cells % 0.0 %
[2025-11-07 05:42] LABS: Sodium 141 mmol/L (136-145)
[2025-11-07 05:43] LABS: Anion Gap 9 (5-15); Carbon Dioxide 24 mmol/L (20-31)
[2025-11-07 05:48] LABS: BUN/Creatinine Ratio 11.1 (10.0-20.0)
[2025-11-07 05:50] LABS: Blood Urea Nitrogen 31 mg/dL (9-23); Calcium 8.1 mg/dL (8.7-10.4); Chloride 108 mmol/L (98-107); Glucose 73 mg/dL (74-106); Potassium 3.5 mmol/L (3.5-5.1)
[2025-11-07 08:00] VITALS: PULSE 80; PULSE 88; RESP 18; O2SAT 98
[2025-11-07 08:47] VITALS: BP 154/66; PULSE 78; RESP 18; O2SAT 95
--- NOTE | 2025-11-07 10:27 | DVHPN2 ---
Progress Note Date Seen: Nov 07, 2025 Medical Necessity Reason Pt with a Central, PICC or Fol: Yes The following are medically ne: Givens Catheter Subjective Changes from previous H/P or p: No Changes Objective vital signs Vital Sign Date Time Temp Pulse Resp B/P (MAP) Pulse Ox O2 Delivery O2 Flow Rate FiO2 11/07/25 08:47 78 18 154/66 (95) 95 11/07/25 08:00 Room Air* 0 21 11/07/25 05:00 98.4 98.4 Total Intake and Output 11/06/25 11/06/25 11/07/25 15:00 23:00 07:00 Intake Total 1000 ml 1100 ml Output Total 400 ml Balance 600 ml 1100 ml medications Current Medications Medications Dose Ordered Sig/Serenity Route Start Time Stop Time Status Last Admin Dose Admin Docusate Sodium 100 mg BIDPRN PRN PO 11/04/25 05:15 Acetaminophen 650 mg Q6HP PRN PO 11/04/25 05:15 Ondansetron HCl 4 mg Q4HP PRN IV 11/04/25 05:15 Nitroglycerin 0.4 mg Q5MINP PRN SL 11/04/25 05:15 Morphine Sulfate 2 mg Q30M PRN IV 11/04/25 05:15 Heparin Sodium (Porcine) 5,000 units Q12HR SC 11/04/25 10:00 Quetiapine Fumarate 25 mg HS PO 11/04/25 22:00 11/06/25 22:19 25 MG Thiamine HCl 100 mg DAILY PO 11/06/25 10:00 11/06/25 09:44 100 MG Sodium Chloride 1,000 ml @ 75 mls/hr [id number] IV 11/05/25 15:30 11/06/25 04:47 75 MLS/HR Donepezil HCl 5 mg HS PO 11/05/25 22:00 11/06/25 22:19 5 MG Folic Acid 1 mg DAILY PO 11/07/25 10:00 Multivitamins 1 tab DAILY PO 11/07/25 10:00 Examination: GENERAL:Normal, CVS:Normal, SKIN:Normal laboratory and microbiology Laboratory Tests 11/07/25 04:43 Test 11/07/25 04:43 Range/Units Serum Glucose 73 L 74-106 mg/dL Microbiology Date/Time Source Procedure Growth Status 12/27/25 22:50 Blood Blood Culture - Preliminary NO GROWTH AFTER 72 HOURS OF INCUBATION. Resulted Problem List/Assessment/Plan Problem List/Assessment/Plan Acute kidney injury superimposed Chronic Kidney Disease secondary hemodynamic mediated CVA Encephalopathy Hypertension Atrial fibrillation Anemia of chronic kidney disease Nephrolithiasis stable renal function this admission although notably advanced replace potassium daily dc IVF Closely monitor fluid and electrolytes Avoid nephrotoxic medications Strict I&Os Blood pressure control Kidney ultrasound reported 2.6 cm nonobstructing right kidney stone Neurology consult Urology consult Plan discussed with: Patient TEGAN BARRETO MD Nov 07, 2025 10:27
[2025-11-07] MEDS: POTASSIUM CHL 20 Meq TABLET PO ONE (12:19)
[2025-11-07] MEDS: MULTIPLE VITAMIN TAB PO SCH (12:19)
[2025-11-07] MEDS: FOLIC ACID 1 MG TAB PO SCH (12:21)
[2025-11-07 13:00] VITALS: BP 152/76; PULSE 79; RESP 18; TEMP 97.5; O2SAT 96
--- NOTE | 2025-11-07 17:15 | DVHDS2 ---
Discharge Summary Date of Admission Nov 04, 2025 at 05:15 Date of Discharge: Nov 07, 2025 Labs/Diagnostic Data: Laboratory Results Test 11/07/25 04:43 11/06/25 06:02 11/05/25 08:06 11/04/25 12:57 White Blood Count 8.6 10^3/uL (4.4-10.8) Red Blood Count 3.67 10^6/uL (4.5-5.90) Hemoglobin 11.6 g/dL (13.5-17.5) Hematocrit 34.6 % (41.0-53.0) Mean Corpuscular Volume 94.3 fL (80.0-100.0) Mean Corpuscular Hemoglobin 31.6 pg (28.0-32.0) Mean Corpuscular Hemoglobin Concent 33.5 g/dL (32.0-36.0) Red Cell Distribution Width 14.1 % (11.8-14.3) Platelet Count 201 10^3/uL (140-450) Mean Platelet Volume 7.5 fL (6.9-10.8) Neutrophils (%) (Auto) 58.8 % (37.0-80.0) Lymphocytes (%) (Auto) 22.9 % (10.0-50.0) Monocytes (%) (Auto) 15.8 % (0.0-12.0) Eosinophils (%) (Auto) 2.3 % (0.0-7.0) Basophils (%) (Auto) 0.2 % (0.0-2.0) Neutrophils # (Auto) 5.1 10 ^3/uL (1.6-8.6) Lymphocytes # (Auto) 2.0 10 ^3/uL (0.4-5.4) Monocytes # (Auto) 1.4 10 ^3/uL (0-1.3) Eosinophils # (Auto) 0.2 10 ^3/uL (0-0.8) Basophils # (Auto) 0 10 ^3/uL (0-0.2) Nucleated Red Blood Cells 0.0 % Sodium Level 141 mmol/L (136-145) Potassium Level 3.5 mmol/L (3.5-5.1) Chloride Level 108 mmol/L (98-107) Carbon Dioxide Level 24 mmol/L (20-31) Anion Gap 9 (5-15) Blood Urea Nitrogen 31 mg/dL (9-23) Creatinine 2.79 mg/dL (0.700-1.30) Glomerular Filtration Rate Calc 22 mL/min (>90) BUN/Creatinine Ratio 11.1 (10.0-20.0) Serum Glucose 73 mg/dL (74-106) Calcium Level 8.1 mg/dL (8.7-10.4) Differential Total Cells Counted 100.0 (100) Neutrophils % (Manual) 69 (37.0-80.0) Band Neutrophils % (Manual) 3 Lymphocytes % (Manual) 8 (10.0-50.0) Monocytes % (Manual) 19 (0-12) Eosinophils % (Manual) 1 (0-7) Basophils % (Manual) 0 (0.0-2.0) Metamyelocytes % (manual) 0 Myelocytes % (Manual) 0 Promyelocytes % (Manual) 0 Blast Cells % (Manual) 0 Reactive Lymphocytes 0 Platelet Estimate Adequate POC Glucose 90 mg/dl (70-106) Parathyroid Hormone (Intact) 83.3 pg/mL (18.4-80.1) Test 11/04/25 05:48 11/03/25 23:46 11/03/25 22:42 11/03/25 22:00 Phosphorus Level 4.1 mg/dL (2.4-5.1) Ammonia 17 umol/L (11-32) Vitamin B12 Level 185 pg/mL (211-911) Vitamin D 25-Hydroxy 27.6 ng/mL (30.0-100) Folic Acid 12.01 ng/mL (>5.38) Thyroid Stimulating Hormone (TSH) 1.09 uIU/mL (0.55-4.78) Free Thyroxine (T4) Calculated 0.98 ng/dL (0.89-1.76) Troponin I High Sensitivity 28 ng/L (</=54) Prothrombin Time 10.0 sec (9.3-11.8) Prothrombin Time INR 0.94 (0.9-1.15) Activated Partial Thromboplast Time 28.8 SEC (24.5-34.5) Lactic Acid Level 0.8 mmol/L (0.4-2.0) Magnesium Level 2.2 mg/dL (1.6-2.6) Total Bilirubin 0.5 mg/dL (0.2-1.0) Aspartate Amino Transferase (AST) 15 U/L (13-40) Alanine Aminotransferase (ALT) < 9 U/L (7-40) Alkaline Phosphatase 94 U/L (46-116) Total Protein 7.4 g/dL (5.7-8.2) Albumin 4.5 g/dL (3.2-4.8) Plasma/Serum Blood Alcohol < 3.0 mg/dL (<10) Urine Color Light-yellow (Yellow) Urine Clarity Clear (Clear) Urine pH 5.5 (5.0-9.0) Urine Specific [place] 1.013 (1.001-1.035) Urine Protein 2+ (Negative) Urine Ketones Negative (Negative) Urine Blood Trace /uL (Negative) Urine Nitrite Negative (Negative) Urine Bilirubin Negative (Negative) Urine Urobilinogen Normal mg/dL (Negative) Urine Leukocyte Esterase Negative /uL (Negative) Urine RBC <1 /hpf (0 - 3) Urine Microscopic WBC < 1 /HPF (0-3) Urine Squamous Epithelial Cells Few /hpf (<5) Urine Bacteria None seen /hpf (None Seen) Urine Glucose Normal mg/dL (Normal) Urine Opiates Screen Neg (NEGATIVE) Urine Fentanyl Screen Neg (NEGATIVE) Urine Barbiturates Screen Neg (NEGATIVE) Urine Phencyclidine Screen Neg (NEGATIVE) Urine Amphetamines Screen Neg (NEGATIVE) Urine Benzodiazepines Screen Neg (NEGATIVE) Urine Cocaine Screen Neg (NEGATIVE) Urine Cannabinoids Screen Neg (NEGATIVE) Other Laboratory Tests 11/07/25 04:43 Brief Hx & Hospital Course: 80-year-old male with a known history of CKD stage 4, hypertension, AFib, history of CVA,, mood/behavior disorder presented to the hospital with altered mental status found to have acute metabolic encephalopathy with a underlying Alzheimer dementia. Patient also had acute kidney injury with a underlying CKD stage 4. Patient's has a known history of chronic alcoholism was started on thiamine and folic acid orally after the banana bag. Patient left against medical advice before completion of workup and treatment. Condition at Discharge: Undetermined Final Diagnosis/Problems List 80-year-old male with a known history of CKD stage 4, hypertension, AFib, history of CVA,, mood/behavior disorder presented to the hospital with altered mental status found to have 1. Acute metabolic encephalopathy with a underlying Alzheimer dementia 2. AKA with a underlying CKD stage 4 3. Alzheimer dementia 4. Behavior disorder 5. Chronic alcoholism -continue thiamine and folic acid. -resume Seroquel, PT evaluation and treatment, discharge plan Discharge Disposition: AMA SNF Discharge Will this Physician continue t: No Discharge Statement: "Patient was advised to return to the ER or call 911 if any headaches, dizziness, shortness of breath, chest pain, abdominal pain, bleeding, fevers, or worsening of medical condition. Patient was counseled about treatment plan, medications, possible side effects, patientverbalized understanding. All questions were answered to the best of my ability. This discharge took greater then 30 minutes in planning, reviewing documentation, counseling the patient, and discussing with other team members." ASSESSMENT ASSESSMENT Assessment Date of Service: Nov 07, 2025 Billing Provider: CLAUDIA ODELL MD Common Visit Codes: NOT BILLABLE CLAUDIA ODELL MD Nov 07, 2025 17:15
== END 2025-11-07 16:01 | disposition left against medical advice (07) | DRG 71 ==
LOC: ER 18:12 → EDBD 18:12 → OVERFLOW 11-04 05:15 → TELE-WESTW 11-04 21:07
PROVIDERS: ADMIT Nurse Practitioner Family; ATTEND Nurse Practitioner Family
DX: G93.41 Metabolic encephalopathy (principal); N17.9 Acute kidney failure, unspecified; Z59.00 Homelessness unspecified; D63.1 Anemia in chronic kidney disease; N18.4 Chronic kidney disease, stage 4 (severe); E86.0 Dehydration; I48.91 Unspecified atrial fibrillation; F02.80 Dementia in other diseases classified elsewhere, unspecified severity, without behavioral disturbance, psychotic disturbance, mood disturbance, and anxiety; F10.20 Alcohol dependence, uncomplicated; I12.9 Hypertensive chronic kidney disease with stage 1 through stage 4 chronic kidney disease, or unspecified chronic kidney disease; G30.0 Alzheimer's disease with early onset; F91.9 Conduct disorder, unspecified; Y90.9 Presence of alcohol in blood, level not specified; N20.0 Calculus of kidney; F17.200 Nicotine dependence, unspecified, uncomplicated; Z53.29 Procedure and treatment not carried out because of patient's decision for other reasons; Z86.73 Personal history of transient ischemic attack (TIA), and cerebral infarction without residual deficits
CPT/HCPCS: 36415; 70450; 71045; 76775; 80048; 80053; 80307; 80320; 81001; 82140; 82306; 82607; 82746; 82962; 83605; 83735; 83970; 84100; 84439; 84443; 84484; 85007; 85025; 85027; 85610; 85730; 87040; 96365; 97163; 99291; G0378